=== PATIENT | female | born 1945 | race Caucasian/White ===

== ENCOUNTER 2019-06-25 13:35 | Emergency (ER) | payer MEDICARE ==
[2019-06-25 16:08] LABS: Hematocrit 40 % (35-47); Hemoglobin 13.2 g/dL (12.0-16.0); Mean Corpuscular HGB Conc 33 g/dL (31-36); Mean Corpuscular Hemoglobin 33 pg (27-31); Mean Corpuscular Volume 97 fL (80-97); Red Blood Count 4.07 10^6 /uL (3.70-4.87); Red Cell Distribution Width 16 % (10-15); White Blood Count 7.5 10^3/uL (3.5-10.8)
[2019-06-25 16:22] LABS: ALT 45 U/L (7-52); Albumin 3.9 g/dL (3.2-5.2); Albumin/Globulin Ratio 1.4 (1-3); Alkaline Phosphatase 75 U/L (34-104); BUN/Creatinine Ratio 33.8 (8-20); Blood Urea Nitrogen 23 mg/dL (6-24); C Reactive Protein 98.68 mg/L (<8.01); CO2 Carbon Dioxide 27 mmol/L (22-32); Chloride 102 mmol/L (101-111); EGFR African American 102.9 (>60); EGFR Non-African American 85.1 (>60); Globulin 2.8 g/dL (2-4); Glucose 105 mg/dL (70-100); Sodium 134 mmol/L (135-145); Total Protein 6.7 g/dL (6.4-8.9)
[2019-06-25] MEDS ORDERED: NS 0.9% 1000 ML** 2,000 ML IV ONE (16:27)
[2019-06-25] MEDS ORDERED: Ondansetron INJ* 2 MG/ML VIAL IV ONE (16:28)
[2019-06-25 16:29] LABS: Anion Gap 5 mmol/L (2-11)
[2019-06-25 16:35] LABS: ABS Eosinophils 0.1 10^3/ul (0-0.6); ABS Monocytes 0.6 10^3/ul (0-0.8); ABS Neutrophils 5.8 10^3/ul (1.5-7.7); Eosinophil % 1.1 %; Lymphocyte % 13.1 %; Nucleated Red Blood Cells % 0.2; Platelet Count 253 10^3/uL (150-450)
[2019-06-25 17:35] LABS: Magnesium 1.8 mg/dL (1.9-2.7)
--- NOTE | 2019-06-25 17:35 | ED ---
GI/ HPI - HPI Summary HPI Summary: 73 year old female presents with abdominal pain for the past couple days. pain is in left lower quadrant. She admits to nausea and vomiting. She denies any urinary symptoms. She admits to diarrhea. Has some than some trace blood after she is done with diarrhea. No fevers. No chest pain or shortness of breath. She feels little weak. Has not had appetite. Has history of RA. - History of Current Complaint Chief Complaint: EDAbdPain Time Seen by Provider: 06/25/19 16:17 Stated Complaint: BLOOD IN STOOL, DIARRHEA PER PT Pain Intensity: 0 - Allergy/Home Medications Allergies/Adverse Reactions: Allergies Allergy/AdvReac Type Severity Reaction Status Date / Time bupropion [From Wellbutrin] Allergy Hives Verified 06/25/19 13:42 gold Au 198 Allergy Hives/Diff. Verified 06/25/19 13:42 Breathing/I tching PMH/Surg Hx/FS Hx/Imm Hx Endocrine/Hematology History: Denies: Hx Anticoagulant Therapy Respiratory History: Denies: Hx Asthma Infectious Disease History: No Infectious Disease History: Denies: Traveled Outside the [place] in Last 30 Days - Family History Known Family History: Positive: Non-Contributory - Social History Alcohol Use: None Substance Use Type: Reports: None Smoking Status (MU): Current Every Day Smoker Review of Systems Negative: Fever Negative: Chest Pain Negative: Shortness Of Breath Positive: Abdominal Pain, Diarrhea, Nausea All Other Systems Reviewed And Are Negative: Yes Physical Exam Triage Information Reviewed: Yes Vital Signs On Initial Exam: Initial Vitals Temp Pulse Resp BP Pulse Ox 98.1 F 100 18 127/80 98 06/25/19 13:37 06/25/19 13:37 06/25/19 13:37 06/25/19 13:37 06/25/19 13:37 Vital Signs Reviewed: Yes Appearance: Positive: Well-Appearing Skin: Positive: Warm, Dry Head/Face: Positive: Normal Head/Face Inspection Eyes: Positive: Normal, EOMI, ABHINAV, Conjunctiva Clear ENT: Positive: Pharynx normal Respiratory/Lung Sounds: Positive: Clear to Auscultation, Breath Sounds Present Cardiovascular: Positive: Normal, RRR Abdomen Description: Positive: Soft, Other: - tenderness in LLQ Bowel Sounds: Positive: Present Musculoskeletal: Positive: Normal Neurological: Positive: Normal Psychiatric: Positive: Normal Diagnostics - Vital Signs Vital Signs Temp Pulse Resp BP Pulse Ox 06/25/19 17:13 142/74 06/25/19 17:00 80 81 06/25/19 16:43 79 116/71 96 06/25/19 16:41 79 95 06/25/19 15:46 99.7 F 83 16 95/56 96 06/25/19 13:37 98.1 F 100 18 127/80 98 - Laboratory Lab Results: Lab Results 06/25/19 06/25/19 06/25/19 Range/Units 15:47 15:47 15:47 WBC 7.5 (3.5-10.8) 10^3/uL RBC 4.07 (3.70-4.87) 10^6 /uL Hgb 13.2 (12.0-16.0) g/dL Hct 40 (35-47) % MCV 97 (80-97) fL MCH 33 H (27-31) pg MCHC 33 (31-36) g/dL RDW 16 H (10-15) % Plt Count 253 (150-450) 10^3/uL MPV Not Reportable Neut % (Auto) 77.8 % Lymph % (Auto) 13.1 % [place] % (Auto) 7.6 % Eos % (Auto) 1.1 % Baso % (Auto) 0.4 % Absolute Neuts (auto) 5.8 (1.5-7.7) 10^3/ul Absolute Lymphs (auto) 1.0 (1.0-4.8) 10^3/ul Absolute Monos (auto) 0.6 (0-0.8) 10^3/ul Absolute Eos (auto) 0.1 (0-0.6) 10^3/ul Absolute Basos (auto) 0.0 (0-0.2) 10^3/ul Absolute Nucleated RBC 0.0 10^3/ul Nucleated RBC % 0.2 Sodium 134 L (135-145) mmol/L Potassium TNP Chloride 102 (101-111) mmol/L Carbon Dioxide 27 (22-32) mmol/L Anion Gap 5 (2-11) mmol/L BUN 23 (6-24) mg/dL Creatinine 0.68 (0.51-0.95) mg/dL Est GFR ( Amer) 102.9 (>60) Est GFR (Non-Af Amer) 85.1 (>60) BUN/Creatinine Ratio 33.8 H (8-20) Glucose 105 H (70-100) mg/dL Lactic Acid 0.9 (0.5-2.0) mmol/L Calcium 9.0 (8.6-10.3) mg/dL Magnesium TNP Total Bilirubin 0.50 (0.2-1.0) mg/dL AST TNP ALT 45 (7-52) U/L Alkaline Phosphatase 75 (34-104) U/L C-Reactive Protein 98.68 H (<8.01) mg/L Total Protein 6.7 (6.4-8.9) g/dL Albumin 3.9 (3.2-5.2) g/dL Globulin 2.8 (2-4) g/dL Albumin/Globulin Ratio 1.4 (1-3) Lipase < 10 L (11.0-82.0) U/L Result Diagrams: 06/25/19 15:47 06/25/19 16:50 Lab Statement: Any lab studies that have been ordered have been reviewed, and results considered in the medical decision making process. - CT abd CT Interpretation Completed By: Radiologist Summary of CT Findings: IMPRESSION: Probable early diverticulitis of the sigmoid colon with mild associated ileus. Re-Evaluation - Re-Evaluation First Eval Change: Unchanged Comment: dicussed lab results Second Eval Re-Evaluation Time: 19:38 Change: Unchanged Comment: no pain, discussed CT results GIGU Course/Dx - Course Course Of Treatment: 73 year old female presents with abdominal pain for the past couple days. pain is in left lower quadrant. She admits to nausea and vomiting. She denies any urinary symptoms. She admits to diarrhea. Has some than some trace blood after she is done with diarrhea. No fevers. No chest pain or shortness of breath. She feels little weak. Has not had appetite. Has history of RA. On exam has tenderness in left lower quadrant. wbc normal. CRP elevated. CT abd shows diverticulitis. will treat with augmentin and flagyl. patient understand and agrees with plan. - Diagnoses Differential Diagnoses - Female: Diverticulitis, Gastroenteritis (Viral), Ureteral Calculi Provider Diagnoses: Diverticulitis Discharge ED - Sign-Out/Discharge Documenting (check all that apply): Patient Departure Patient Received Moderate/Deep Sedation with Procedure: No - Discharge Plan Condition: Good Disposition: HOME Prescriptions: Amoxicillin/Clavulanate TAB* [Augmentin TAB 875*] 875 mg PO BID #19 tab metroNIDAZOLE [Flagyl 500 MG TAB] 500 mg PO TID #29 tab Ondansetron ODT TAB* [Zofran 4 MG Odt TAB*] 4 mg PO Q6H PRN #20 tab.odt PRN Reason: Nausea Patient Education Materials: Diverticulitis (ED), Diverticulitis Diet (ED) Forms: *Gen. Provider Communication Referrals: No Primary Care Phys,NOPCP [Primary Care Provider] - Additional Instructions: Take augmentin twice a day for 10 days, first dose given in ED Take Flagyl every 8 hours for 10 days, first dose given in ED Take Zofran every 6 hours for nausea Follow clear liquid diet until symptoms improve Return to ED if unable to keep anything down, develop fever, or any new or worsening symptoms - Billing Disposition and Condition Condition: GOOD Disposition: Home
[2019-06-25 17:58] LABS: Urine Appearance Cloudy; Urine Bacteria 1+ (Absent); Urine Bilirubin Negative (Negative); Urine Blood 2+ (Negative); Urine Color Yellow; Urine Glucose Negative (Negative); Urine Ketones Negative (Negative); Urine Nitrite Positive (Negative); Urine Protein Negative (Negative); Urine Red Blood Cell Trace(0-2/hpf) (Absent); Urine Specific Gravity 1.008 (1.010-1.030); Urine Urobilinogen Negative (Negative); Urine White Blood Cell Trace(0-5/hpf) (Absent)
[2019-06-25] MEDS ORDERED: Iohexol 300* (CONTRAST) 10 ML SDV IV ONE (18:21)
[2019-06-25] MEDS ORDERED: Amoxicillin/Clavulanate TAB* 875 MG PO ONE (19:29)
[2019-06-25] MEDS ORDERED: metroNIDAZOLE TAB* 250 MG PO ONE (19:29)
[2019-06-25 19:48] VITALS: BP 118/73
== END 2019-06-25 19:40 | disposition home or self-care (01) ==
LOC: ED 13:35
DX: K57.32 Diverticulitis of large intestine without perforation or abscess without bleeding (principal); R11.2 Nausea with vomiting, unspecified; R19.7 Diarrhea, unspecified; Z88.8 Allergy status to other drugs, medicaments and biological substances; F17.200 Nicotine dependence, unspecified, uncomplicated
CPT/HCPCS: 36415; 74177; 80053; 81003; 81015; 82272; 83605; 83690; 83735; 85025; 86140; 87077; 87086; 87186; 96361; 96374; 99282; A9270-GY; Q9967